=== PATIENT | female | born 1945 | race Caucasian/White ===

== ENCOUNTER → 2024-09-22 | Outpatient (CLI) | payer MEDICARE | LOC: LAB SHORT 07:49 → LAB 07:49 | DX: C43.62 Malignant melanoma of left upper limb, including shoulder (principal) | CPT/HCPCS: 88342 ==

== ENCOUNTER → 2024-10-20 | Outpatient (CLI) | payer MEDICARE | LOC: LAB 13:07 → LAB SHORT 13:07 | DX: D03.62 Melanoma in situ of left upper limb, including shoulder (principal); L08.9 Local infection of the skin and subcutaneous tissue, unspecified | CPT/HCPCS: 87070; 87077; 87147; 87186; 87205 ==